=== PATIENT | female | born 1985 | race African-American/Black ===

== ENCOUNTER 2017-07-18 21:48 | Emergency (ER) | payer MEDICAID, OTHER ==
[~2017-07-18] VITALS: Ht 167.6 cm; Wt 95.0 kg
[~2017-07-18 21:48] MED LIST: IOHEXOL-300 100 ML BOTTLE ONE; SODIUM CHLORIDE 0.9% 10ML VIAL ONE
[2017-07-18] MEDS ORDERED: ONDANSETRON HCL 4MG/2ML VIAL IV STA (22:06)
[2017-07-18] MEDS ORDERED: SODIUM CHLORIDE 0.9% 1,000 ML IV ONE (22:06)
[2017-07-18] MEDS ORDERED: MORPHINE SULFATE 4 MG/ML CPJ (NOT FOR IM USE) IV STA (22:06)
[2017-07-18 22:34] LABS: CLARITY URINE CLEAR (CLEAR); COLOR URINE DARK YELLOW (YELLOW); GLUCOSE URINE NEGATIVE (NEGATIVE); KETONES URINE TRACE (NEGATIVE); LEUKOCYTE ESTERASE URINE TRACE (NEGATIVE); NITRITE URINE NEGATIVE (NEGATIVE); OCCULT BLOOD URINE NEGATIVE (NEGATIVE); PROTEIN URINE TRACE (NEGATIVE); SPECIFIC GRAVITY URINE 1.032 (1.005-1.030)
[2017-07-18 22:36] LABS: BASOPHILS % 0.5 % (0.0-2.0); EOSINOPHILS % 1.9 % (0.0-5.0); HEMATOCRIT. 38.6 % (36.0-48.0); HEMOGLOBIN. 12.6 g/dL (12.0-16.0); MEAN CORPUSCULAR HEMOGLOBIN 31.8 pg (28.0-32.0); MEAN PLATELET VOLUME 9.2 fl (7.4-10.4); MONOCYTES % 9.8 % (2.0-8.0); NEUTROPHILS % 74.8 % (40.0-76.0); PLATELET 194 x1000/uL (130-400); RED BLOOD CELL COUNT 3.98 mill/uL (4.2-5.4); RED CELL DISTRIBUTION WIDTH 16.6 % (11.6-14.6)
[2017-07-18 22:41] LABS: CHLORIDE 104 mEq/L (98-107)
[2017-07-18 22:46] LABS: CARBON DIOXIDE 27 mEq/L (21-32)
[2017-07-18 22:52] LABS: INR 1.1; PARTIAL THROMBOPLASTIN TIME 25.9 sec (23.4-31.0)
[2017-07-18] MEDS ORDERED: CEFTRIAXONE 1 G PREMIX 50 ML IV ONE (23:15)
[2017-07-19] MEDS ORDERED: MORPHINE SULFATE 4 MG/ML CPJ (NOT FOR IM USE) IV ONE (00:15)
[2017-07-19] MEDS ORDERED: IBUPROFEN 600MG TABLET PO ONE (00:45)
[2017-07-19 01:15] VITALS: BP 117/79
== END 2017-07-19 01:34 | disposition home or self-care (01) ==
LOC: ER 22:01
DX: N39.0 Urinary tract infection, site not specified (principal); D21.9 Benign neoplasm of connective and other soft tissue, unspecified; K59.00 Constipation, unspecified; E80.6 Other disorders of bilirubin metabolism; F17.200 Nicotine dependence, unspecified, uncomplicated; F12.10 Cannabis abuse, uncomplicated
CPT/HCPCS: 36415; 71010; 74177; 76705; 80053; 81001; 81025; 83690; 85025; 85610; 85730; 93005; 96361; 96365; 96375; 96376; 99285; A4216; J0696; J2270; J2405; J7030; Q9967; Z7610

== ENCOUNTER 2019-08-19 06:26 | Emergency (ER) | payer MEDICAID, OTHER ==
[~2019-08-19] VITALS: Ht 170.2 cm; Wt 75.0 kg
[2019-08-19] MEDS ORDERED: ACETAMINOPHEN WITH CODEINE 300/30MG TABLET PO ONE (08:00)
[2019-08-19 08:11] VITALS: BP 123/87
== END 2019-08-19 08:15 | disposition left against medical advice (07) ==
LOC: ER 06:26
DX: S00.531A Contusion of lip, initial encounter (principal); J45.909 Unspecified asthma, uncomplicated; I10 Essential (primary) hypertension; F17.200 Nicotine dependence, unspecified, uncomplicated; Z98.890 Other specified postprocedural states; Y08.89XA Assault by other specified means, initial encounter; Y93.89 Activity, other specified; Y92.89 Other specified places as the place of occurrence of the external cause; Y99.8 Other external cause status
CPT/HCPCS: 81025; 99283

== ENCOUNTER 2021-10-26 18:23 | Emergency (ER) | payer MEDICARE, OTHER | END 2021-10-26 20:55 | disposition left against medical advice (07) | LOC: ER 18:23 | DX: Z53.21 Procedure and treatment not carried out due to patient leaving prior to being seen by health care provider (principal) ==